=== PATIENT | female | born 1955 | race Caucasian/White ===

== ENCOUNTER 2016-07-11 06:07 | Day surgery (SDC) | payer BC, OTHER ==
[2016-07-11] MEDS ORDERED: methylPREDNISolone ACETATE 80 MG/ML VIAL ONE (12:08)
[2016-07-11] MEDS ORDERED: SODIUM BICARBONATE VIAL 50 MEQ/50 ML VIAL ONE (12:08)
[2016-07-11] MEDS ORDERED: LIDOCAINE 1% 10 ML VIAL INJ ONE (12:08)
[2016-07-11] MEDS ORDERED: BUPIVACAINE 0.25% INJ 30 ML VIAL INJ ONE (12:08)
[2016-07-11] MEDS ORDERED: SODIUM CHLORIDE 0.9% 10 ML VIAL ONE (13:22)
[2016-07-11 14:12] VITALS: TEMP 97.3; O2SAT 100
[2016-07-11 14:33] VITALS: BP 154/74
== END 2016-07-11 14:25 | disposition home or self-care (01) ==
LOC: AMB 06:07
PROVIDERS: ATTEND Anesthesiology Pain Medicine
DX: M51.16 Intervertebral disc disorders with radiculopathy, lumbar region (principal); Z79.82 Long term (current) use of aspirin; Z79.899 Other long term (current) drug therapy
CPT/HCPCS: 64490; 76000; J1030

== ENCOUNTER 2016-08-15 06:00 | Day surgery (SDC) | payer OTHER ==
[2016-08-15] MEDS ORDERED: methylPREDNISolone ACETATE 80 MG/ML VIAL ONE (11:52)
[2016-08-15] MEDS ORDERED: LIDOCAINE 1% 10 ML VIAL INJ ONE (11:52)
[2016-08-15] MEDS ORDERED: SODIUM CHLORIDE 0.9% 10 ML VIAL ONE (11:52)
[2016-08-15] MEDS ORDERED: SODIUM BICARBONATE VIAL 50 MEQ/50 ML VIAL IV ONE (14:15)
[2016-08-15] MEDS ORDERED: LIDOCAINE 1% MPF 5 ML VIAL INJ ONE ×2 (14:15→14:21)
[2016-08-15 14:36] VITALS: BP 140/80; TEMP 97.6; O2SAT 99
== END 2016-08-15 14:42 | disposition home or self-care (01) ==
LOC: AMB 06:00
PROVIDERS: ATTEND Anesthesiology Pain Medicine
DX: M47.812 Spondylosis without myelopathy or radiculopathy, cervical region (principal); K21.9 Gastro-esophageal reflux disease without esophagitis; M81.0 Age-related osteoporosis without current pathological fracture; M54.17 Radiculopathy, lumbosacral region; G62.9 Polyneuropathy, unspecified; Z79.899 Other long term (current) drug therapy; Z87.891 Personal history of nicotine dependence
CPT/HCPCS: 64490; 64491; 64492; J1030

== ENCOUNTER → 2016-10-04 | Outpatient (CLI) | payer OTHER | END | disposition home or self-care (01) | LOC: YCFC.O 15:10 | PROVIDERS: ATTEND Nurse Practitioner Family | DX: Z79.891 Long term (current) use of opiate analgesic (principal) ==

== ENCOUNTER → 2016-10-19 | Outpatient (CLI) | payer OTHER | END | disposition home or self-care (01) | LOC: GMA 17:25 | PROVIDERS: ATTEND Nurse Practitioner Acute Care | DX: D51.3 Other dietary vitamin B12 deficiency anemia (principal) ==

== ENCOUNTER → 2016-11-21 | Outpatient (CLI) | payer OTHER | END | disposition home or self-care (01) | LOC: GMAM 14:23 | PROVIDERS: ATTEND Family Medicine | DX: D64.9 Anemia, unspecified (principal) ==

== ENCOUNTER → 2016-12-05 | Outpatient (CLI) | payer OTHER | END | disposition home or self-care (01) | LOC: GMAM 17:27 | PROVIDERS: ATTEND Family Medicine | DX: M25.50 Pain in unspecified joint (principal) ==

== ENCOUNTER → 2016-12-12 | Outpatient (CLI) | payer OTHER ==
--- NOTE | 2016-12-13 08:39 | MRI ---
EXAM DESCRIPTION: Brain w/wo Contrast CLINICAL HISTORY: 61 years Female, DIZZINESS COMPARISON: September 17, 2015 TECHNIQUE: MRI of the brain is performed according to our usual protocol including multiplanar multi sequence technique. Post gadolinium imaging is performed following IV administration of gadolinium contrast FINDINGS: Mild age-appropriate atrophic changes with ventriculomegaly is present with very little enlargement of the cortical sulci are sylvian fissures. No significant white matter disease or age-related changes are noted and diffusion imaging shows no evidence of acute or subacute restricted diffusion or ischemia. Postcontrast imaging demonstrates the normal meningeal and vascular structures. No enhancing tumor masses or metastatic disease or vascular malformations are noted. Extensive instrumentation of the cervical spine at the C3-4 level with suspected at least mild narrowing of the central spinal canal beginning at the at the upper C3 level is evident. If the patient remains with dizziness or has symptoms of a upper spinal tract disease, consider MRI of the cervical spine for evaluation for any element of stenosis. No significant inflammatory changes in the visualized paranasal sinuses and petrous ridges is seen. IMPRESSION: 1. Very slight prominence of the ventricular system, entirely consistent with the patient's age with no significant white matter disease or abnormal areas of enhancement. 2. Prior surgery in the upper cervical spine with what appears to be at least modest narrowing of the cervical spinal canal at the C3-4 level. 3. If symptoms of dizziness of persist or there is evidence of upper spinal tract disease consider MRI of the cervical spine to evaluate for possible stenosis. Electronically signed by: Benjamin Galvan MD 12/13/2016 8:39 AM CDT
== END | disposition home or self-care (01) ==
LOC: MRI 08:01
PROVIDERS: ATTEND Family Medicine
DX: H81.10 Benign paroxysmal vertigo, unspecified ear (principal)

== ENCOUNTER 2016-12-29 08:58 | Observation (INO) | payer OTHER ==
--- NOTE | 2016-12-29 09:16 | ED.PDOC ---
History of Present Illness - General Chief Complaint: Syncope/Near Syncope Stated Complaint: syncope Time Seen by Provider: 12/29/16 09:15 Source: patient Exam Limitations: no limitations - History of Present Illness Initial Comments: Donn Munguia 61 y/o female stated that while having bowel movement felt light headed,dizzy and almost passed out then on standing up fell on her arm.Had chronic diarrhea for the last 2 months.Initially had constipation in the past. Timing/Prior Episodes: single episode today Precipitating Factors: lightheadedness Context: sitting Episode Description: having bowel movement Loss of Consciousness: no loss of consciousness Current Symptoms: back to normal Allergies/Adverse Reactions: Allergies NO KNOWN ALLERGY Allergy (Verified 06/06/16 13:31) Home Medications: Ambulatory Orders ALPRAZolam [Xanax] 0.5 mg PO QID 06/06/16 Amitriptyline HCl [Elavil] 10 mg PO DAILY 06/06/16 Aspirin [Aspirin Adult Low Dose] 81 mg PO DAILY 06/06/16 Calcium Polycarbophil Tabs [Fiber Con Tabs] 625 mg PO PRN 06/06/16 Calcium W/ Vitamins D & K [Calcium + D + K] 1 tab PO DAILY 06/06/16 Celecoxib [CeleBREX] 200 mg PO DAILY 06/06/16 Cholecalciferol [Vitamin D3] 5,000 unit PO DAILY 06/06/16 Dexlansoprazole [Dexilant] 60 mg PO DAILY 06/06/16 Donepezil HCl [Aricept] 5 mg PO DAILY 06/06/16 Duloxetine HCl [Cymbalta] 60 mg PO DAILY 06/06/16 Gabapentin 300 mg PO DAILY 06/06/16 Gabapentin 400 mg PO BEDTIME 06/06/16 Lamotrigine [Lamictal] 150 mg PO BID 06/06/16 Linaclotide [Linzess] 145 mcg PO DAILY 06/06/16 Lisinopril 10 mg PO BID 06/06/16 Methylcellulose (Laxative) [Citrucel] 1 tbls PO DAILY 06/06/16 Polyethylene Glycol 3350 [Miralax] 1 pow PO PRN 06/06/16 Saccharomyces Boulardii [Probiotic] 250 mg PO DAILY 06/06/16 Sucralfate Tab [Carafate Tab] 1 gm PO BID 06/06/16 Trazodone HCl 50 mg PO DAILY 06/06/16 Review of Systems - Review of Systems Constitutional: States: weakness EENTM: States: no symptoms reported Respiratory: States: no symptoms reported Cardiology: States: no symptoms reported Gastrointestinal/Abdominal: States: see HPI Musculoskeletal: States: no symptoms reported Skin: States: no symptoms reported Neurological: States: no symptoms reported Endocrine: States: no symptoms reported Hematologic/Lymphatic: States: no symptoms reported Past Medical History (General) - Patient Medical History Hx Hypertension: Yes Hx Other PMH: Yes - 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 Surgical History: other - hysterctomy,neck,elbow - Social History Hx Alcohol Use: No Hx Substance Use: No Hx Substance Use Treatment: No Hx Depression: No Feels Threatened In Home Enviroment: No Feels Threatened In a Relationship: No Hx Physical Abuse: No Hx Emotional Abuse: No Hx Suspected Abuse: No - Activities of Daily Living Patient Lives Alone: No - Physical Exam - Physical Exam General Appearance: Alert, Anxious, No apparent distress, Other - speech fluent Eyes, Ears, Nose, Throat Exam: PERRL/EOMI, normal ENT inspection, TMs normal, pharynx normal Neck: non-tender, full range of motion, supple, normal inspection Cardiovascular/Respiratory: regular rate, rhythm, no M/R/G, normal peripheral pulses, no JVD, normal breath sounds, no respiratory distress Gastrointestinal/Abdominal: normal bowel sounds, non tender, soft, no organomegaly, no pulsatile mass Back Exam: normal inspection, no CVA tenderness, no vertebral tenderness Extremity: normal range of motion, non-tender, normal inspection, no pedal edema , no calf tenderness Mental Status: alert, 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 Exam: normal hearing, normal speech, PERRL Coordination/Gait: normal finger to nose Motor/Sensory: no motor deficit, no sensory deficit, no pronator drift, negative Babinski's sign Skin Exam: normal color, warm/dry Lymphatic: no adenopathy Progress - Progress Progress: 12/29/16 12:02 Vital Signs - 8 hr 12/29/16 12/29/16 09:04 10:00 Temperature 96.3 F L Pulse Rate [ 59 L 64 APICAL] Respiratory 19 18 Rate Blood Pressure 78/46 107/65 [RIGHT BRACHIAL ] O2 Sat by Pulse 99 98 Oximetry - Results/Orders Results/Orders: 12/29/16 09:16 URINE DRUG SCREEN, 7 ASSAY Stat URINALYSIS Stat 12/29/16 09:30 EKG STAT 12/29/16 10:59 Ankle,Left 2 Views [RAD] Stat 12/29/16 11:59 STOOL CULTURE Stat Laboratory Results - last 24 hr 12/29/16 12/29/16 12/29/16 09:25 09:25 09:25 WBC 15.0 H RBC 4.36 Hgb 11.3 L Hct 35.3 L MCV 81.0 MCH 25.9 L MCHC 31.9 L RDW 14.0 Plt Count 230 MPV 9.9 Absolute Neuts (auto) 12.70 H Absolute Lymphs (auto) 1.70 Absolute Monos (auto) 0.40 Absolute Eos (auto) 0.20 Absolute Basos (auto) 0.10 Neutrophils % 84.6 H Lymphocytes % 11.0 L Monocytes % 2.7 Eosinophils % 1.0 Basophils % 0.7 D-Dimer, Quantitative < 230 Sodium 137 Potassium 3.5 L Chloride 103 Carbon Dioxide 22 Anion Gap 15.5 BUN 17 Creatinine 0.99 BUN/Creatinine Ratio 17.2 Random Glucose 139 H Serum Osmolality 277.6 Lactic Acid Calcium 9.1 Total Bilirubin 0.3 AST 23 ALT 15 Alkaline Phosphatase 76 Creatine Kinase 75 CK-MB (CK-2) 3.4 CK-MB (CK-2) % Not Reportable Troponin I < 0.02 Serum Total Protein 6.5 Albumin 4.0 Globulin 2.5 Albumin/Globulin Ratio 1.6 Stool Occult Blood 12/29/16 12/29/16 09:50 09:55 WBC RBC Hgb Hct MCV MCH MCHC RDW Plt Count MPV Absolute Neuts (auto) Absolute Lymphs (auto) Absolute Monos (auto) Absolute Eos (auto) Absolute Basos (auto) Neutrophils % Lymphocytes % Monocytes % Eosinophils % Basophils % D-Dimer, Quantitative Sodium Potassium Chloride Carbon Dioxide Anion Gap BUN Creatinine BUN/Creatinine Ratio Random Glucose Serum Osmolality Lactic Acid 2.2 Calcium Total Bilirubin AST ALT Alkaline Phosphatase Creatine Kinase CK-MB (CK-2) CK-MB (CK-2) % Troponin I Serum Total Protein Albumin Globulin Albumin/Globulin Ratio Stool Occult Blood Negative - EKG/XRAY/CT EKG: Sinus, no ST T wave changes Comments: heart rate-64 XRAY: ankle - no acute abnormalities/radiologist Departure - Departure Clinical Impression: Diarrhea Syncope Qualifiers: Syncope type: unspecified Qualified Code(s): R55 - Syncope and collapse Time of Disposition: 12:40 - D/W Dr. Mike-hospitalist for admit Disposition: Admit Patient Condition: Fair Referrals: Benjamin New MD [Primary Care Provider] - 1-2 Weeks Home Medications: Ambulatory Orders ALPRAZolam [Xanax] 0.5 mg PO QID 06/06/16 Amitriptyline HCl [Elavil] 10 mg PO DAILY 06/06/16 Aspirin [Aspirin Adult Low Dose] 81 mg PO DAILY 06/06/16 Calcium Polycarbophil Tabs [Fiber Con Tabs] 625 mg PO PRN 06/06/16 Calcium W/ Vitamins D & K [Calcium + D + K] 1 tab PO DAILY 06/06/16 Celecoxib [CeleBREX] 200 mg PO DAILY 06/06/16 Cholecalciferol [Vitamin D3] 5,000 unit PO DAILY 06/06/16 Dexlansoprazole [Dexilant] 60 mg PO DAILY 06/06/16 Donepezil HCl [Aricept] 5 mg PO DAILY 06/06/16 Duloxetine HCl [Cymbalta] 60 mg PO DAILY 06/06/16 Gabapentin 300 mg PO DAILY 06/06/16 Gabapentin 400 mg PO BEDTIME 06/06/16 Lamotrigine [Lamictal] 150 mg PO BID 06/06/16 Linaclotide [Linzess] 145 mcg PO DAILY 06/06/16 Lisinopril 10 mg PO BID 06/06/16 Methylcellulose (Laxative) [Citrucel] 1 tbls PO DAILY 06/06/16 Polyethylene Glycol 3350 [Miralax] 1 pow PO PRN 06/06/16 Saccharomyces Boulardii [Probiotic] 250 mg PO DAILY 06/06/16 Sucralfate Tab [Carafate Tab] 1 gm PO BID 06/06/16 Trazodone HCl 50 mg PO DAILY 06/06/16
[2016-12-29] MEDS ORDERED: LACTATED RINGERS 1,000 ML IVS ONE (09:18)
--- NOTE | 2016-12-29 09:45 | RAD ---
EXAM DESCRIPTION: Chest,1 View CLINICAL HISTORY: passed out COMPARISON: None available TECHNIQUE: AP portable chest FINDINGS: The lungs are clear. There is no infiltrate or effusion. The heart is normal size. IMPRESSION: Normal portable chest Electronically signed by: Jarvis Pedraza MD 12/29/2016 9:44 AM CDT
[2016-12-29] MEDS ORDERED: KETOROLAC TROMETHAMINE INJ 30 MG/ML VIAL IV ONE (11:00)
--- NOTE | 2016-12-29 11:18 | RAD ---
EXAM DESCRIPTION: Hip,Left 2 Views CLINICAL HISTORY: pain COMPARISON: None Available. TECHNIQUE: AP/frog leg lateral FINDINGS: There is no bone, joint, or soft tissue abnormality. IMPRESSION: Normal study Electronically signed by: Jarvis Pedraza MD 12/29/2016 11:17 AM CDT
--- NOTE | 2016-12-29 12:28 | RAD ---
EXAM DESCRIPTION: Ankle,Left 2 Views CLINICAL HISTORY: pain COMPARISON: None. IMPRESSION: 2 views of the left ankle show diffuse osteopenia of the osseous structures without acute fracture, focal bone destruction, or joint dislocation. No advanced arthrosis is seen. Partly visualized postsurgical changes to the right first metatarsal are noted. Electronically signed by: Gabe Pedro MD 12/29/2016 12:27 PM CDT
--- NOTE | 2016-12-29 14:03 | HP ---
HISTORY OF PRESENT ILLNESS: This 61 year-old white female is placed in the hospital for observation from the Emergency Room because of a complete loss of consciousness with syncopal episode having occurred in the bathroom during an explosive watery diarrhea episode. She apparently found herself on the ground having fallen sort of straight down in a small bathroom catching her especially left ankle and hip underneath her with subsequent pain. She was helped up eventually and taken to the Emergency Room for initial evaluation. She has had chronic GI followup with Dr. Centeno, [facility], and has been on a year or more of Linzess. She has had irritable bowel syndrome with migratory aching and cramping sensations in her abdomen. She is even scheduled for a repeat colonoscopy in the next few weeks. In the Emergency Room, she was found to have a very low blood pressure documented down to 78/46 and was given some IV supplementation. She had stool tests, including Clostridium Difficile test which was negative as well as a stool hemoccult which was negative. It was of note that 2 weeks ago she was seen by Dr. New in [facility] and her Linzess was increased to 2 of the 145 mg tablets per day. Subsequently she has had some loose stools but they got especially worse as of today just prior to her syncopal episode. She is placed in the hospital for stabilization, additional IV fluid as well as vital signs and neurologic signs, and telemetry to more fully rule out an underlying cardiac rhythm contributing to her syncope. She has had chronic pain as well in her neck after having had surgery in the past and paresthesias in both upper extremities possibly related to cervical radiculopathies. PAST MEDICAL HISTORY: 1. Irritable bowel syndrome. 2. Megacolon. 3. Hypertension. PAST SURGICAL HISTORY: 1. Hysterectomy. 2. Bunion surgery. 3. Hammertoe. 4. Cervical fusion. She has been followed by Dr. Mckeon, neurologist in [place], for these paresthesias and is scheduled for an EMG test to more fully delineate their etiology later in the month of December. CURRENT MEDICATIONS: Please refer to medicines list for a complete verified list of home medications. ALLERGIES: NONE KNOWN. FAMILY HISTORY: Positive for emphysema and strokes. 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 She stopped smoking about 7 years ago. REVIEW OF SYSTEMS: She has had some weight gain in recent years. No significant fever or chills. HEENT: No hearing or vision problems. PULMONARY: Increased pulmonary secretions with dark colored sputum produced, especially in the morning. CARDIOVASCULAR: No significant chest pains or palpitations noted. GASTROINTESTINAL: No nausea and vomiting, but she does have this watery diarrhea recently getting worse today. No blood in the stools noted. GENITOURINARY: No dysuria. NEUROLOGIC: The patient had an episode of complete unconsciousness having landed on the floor injuring her left ankle and hip area with no fractures noted on preliminary x-rays. Low blood pressure was noted to be associated with her initial visit into the Emergency Room today. PHYSICAL EXAMINATION: VITAL SIGNS: Afebrile, initial pulse 59 up to 72, blood pressure 78/46 up to 130/78 after fluids. Pulse oximetry 99% on room air. Weight 70.6 kilos. GENERAL: The patient is awake, alert and oriented. She is feeling better after the first liter of IV fluids had been administered. Still though quite weak when getting up. Tilt blood pressure showed blood pressure going up when she stood after 1.5 liters of fluid resuscitation, but the pulse also increased upon standing. CHEST: Lungs generally clear to auscultation. CARDIOVASCULAR: Heart tones regular. No significant murmurs. ABDOMEN: Mildly tender in the epigastric area with slightly hyperactive bowel tones. No organomegaly evident upon gentle palpation. EXTREMITIES: Well formed. No significant edema. NEUROLOGIC: Awake, alert and oriented and communicative. No focal weaknesses noted. She has had episodes of paresthesias in both upper extremities but not present currently. LABORATORY: White count 15,000 with 85% neutrophils, hemoglobin 11.3. D-dimer is under 230. Chemistry shows potassium 3.5 with supplement started, BUN 17, creatinine 0.99, glucose 139, lactic acid 2.2. Liver enzymes normal. Troponin zero. Albumin 4. Urinalysis showed some trace hematuria, otherwise clear. Stool occult blood negative. Urine drug screen positive for Benzodiazepines. Clostridium Difficile negative. X-rays of the hip and left ankle, and chest x-ray were unremarkable. ASSESSMENT: 1. Severe worsening liquid diarrhea. Observe for possible underlying colitis with repeat colonoscopy scheduled, but also consider side effect directly related to Linzess medications recently increased dose. 2. Acute syncopal episode, rule out underlying cardiac arrhythmia versus vasovagal response. 3. Dehydration state requiring supplementation. 4. History of irritable bowel syndrome. 5. Leukocytosis. 6. Hypokalemia with supplementation initiated. 7. History of dystaxia. 8. History of falls. 9. History of upper extremity paresthesias probably related to cervical radiculopathy as a potential sequelae and residual symptom after cervical fusion surgery. PLAN: The patient is placed in the hospital for fluid and potassium supplementation. Pain control to be continued. Diet to be slowly advanced. Await C reactive protein in the morning. Stop all Linzess and reevaluate. Await stool culture. Observe telemetry. Observe closely and repeat with followup with Dr. New when clinically stable. #[id number] [facility]
[2016-12-29] MEDS ORDERED: ALUM & MAG HYDROX-SIMETHICONE 30 ML UD PO PRN (16:30)
[2016-12-29] MEDS ORDERED: IV SET AND CAP CHANGE INJ INJ SCH (16:30)
[2016-12-29] MEDS ORDERED: SODIUM CHLORIDE 0.9% (FLUSH) 10 ML SYG IV PRN (16:30)
[2016-12-29] MEDS: LEVALBUTEROL NEBS 1.25 MG/3 ML VIAL INH SCH ×2 (16:40→23:14)
[2016-12-29] MEDS: KCL 20 MEQ/NS 1,000 ML IVS PRN (17:24)
[2016-12-29] MEDS: ALPRAZolam 0.5 MG TAB PO PRN (17:24)
[2016-12-29] MEDS: HYDROcodone 5MG/APAP 325MG 1 EA TAB PO PRN ×2 (17:24→22:33)
[2016-12-29] MEDS ORDERED: LISINOPRIL 10 MG TAB ONE (19:23)
[2016-12-29] MEDS ORDERED: lamoTRIgine 100 MG TAB ONE (19:24)
[2016-12-29] MEDS ORDERED: PREGABALIN 100 MG CAP ONE (19:31)
[2016-12-29] MEDS: LISINOPRIL 10 MG TAB PO SCH (20:45)
[2016-12-29] MEDS: PREGABALIN 100 MG CAP PO SCH (20:45)
[2016-12-29] MEDS ORDERED: lamoTRIgine 100 MG TAB PO SCH (21:00)
[2016-12-30] MEDS: KCL 20 MEQ/NS 1,000 ML IVS PRN (02:23)
[2016-12-30] MEDS ORDERED: OMEPRAZOLE CAP 20 MG CAP ONE (05:27)
[2016-12-30] MEDS ORDERED: OMEPRAZOLE CAP 20 MG CAP PO SCH (06:30)
[2016-12-30] MEDS ORDERED: CELECOXIB 100 MG CAP ONE (07:48)
[2016-12-30] MEDS: LEVALBUTEROL NEBS 1.25 MG/3 ML VIAL INH SCH (08:24)
[2016-12-30] MEDS: HYDROcodone 5MG/APAP 325MG 1 EA TAB PO PRN (08:31)
[2016-12-30] MEDS: LISINOPRIL 10 MG TAB PO SCH (08:32)
[2016-12-30] MEDS: PREGABALIN 100 MG CAP PO SCH (08:32)
[2016-12-30] MEDS ORDERED: CELECOXIB 100 MG CAP PO SCH (09:00)
[2016-12-30] MEDS: ALPRAZolam 0.5 MG TAB PO PRN (09:12)
[2016-12-30 09:57] VITALS: BP 108/65; TEMP 96.8; O2SAT 100
[2016-12-30] MEDS ORDERED: PNEUMOCOCCAL VACCINE 0.5 ML INJ IM ONE (10:22)
--- NOTE | 2016-12-30 11:37 | DS ---
DISCHARGE DIAGNOSIS: 1. Severe diarrhea, resulting in dehydration and hypovolemia and shock state with associated syncope, possible related to side effects of Linzess medications recently on an increased dose, now stopped. 2. Acute syncopal episode with loss of consciousness with no evidence of underlying cardiac rhythm contributing to it, probably secondary to vasovagal response with postural hypotension document with low systolic in the Emergency Room on admission. 3. Dehydration state, secondary to diarrhea, requiring fluid supplementation. 4. History of irritable bowel syndrome and megacolon. 5. Leukocytosis, improved. 6. Hypokalemia with supplementation initiated. 7. History of dystaxia. 8. History of falls. 9. History of upper extremity paresthesias, probably secondary to a recent cervical radiculopathy associated with a cervical fusion procedure. HISTORY OF PRESENT ILLNESS: This 61-year-old, white female was placed in the hospital from the Emergency Room because of a complete loss of consciousness which occurred while going to the bathroom at home. She had an explosive watery diarrhea episode, getting worse over the last week to ten days. It is of note that she did have her Linzess dose increased about two weeks before and has been on it for a few years because of an irritable bowel presentation. She is followed closely by Dr. New in family clinic and Dr. Centeno in the GI clinic. The Linzess was stopped and she was placed in the hospital for IV hydration to continue and for close observation of the diarrhea as well as telemetry to see if there is another etiology contributing to the syncopal episode noted at home. LABORATORY: White count 15,000 with 85% neutrophils, decreasing to 6,300 with 60% neutrophils. Hemoglobin stable at 10.2. D-Dimer under 230. Chemistries showed potassium 3.5, BUN 11, creatinine 0.74, glucose 98 on discharge. Lactic acid 2.2. C-reactive protein 3.7. Liver enzymes otherwise normal. Troponin 0. Albumin 4. Urinalysis showed some hematuria. Stool guaiac negative on one testing and urine drug screen was positive for benzodiazepines. C. difficile was negative. No stool specimen was obtained with the patient not having any further stool specimens since her admission. In her fall, she had pain in her left hip and ankle and x-ray showed no bony fractures and chest x-ray showed no acute process. HOSPITAL COURSE: The patient was feeling much improved at the time fo discharge and will have close followup with her physicians in the outpatient department. PLAN: The patient is discharged home to continue with her home medications, but to stop the Linzess. She will followup with Dr. New in a week and see Dr. Centeno at the GI clinic appointment already made. She also has an appointment later in December for an EMG at Dr. Mckeon's office in [facility]. She is stop the Linzess for now and observe for improvement of the diarrhea and allow the GI clinic and Dr. New to assist on starting it again in the future if indicated. Drink plenty of fluids. Return if not improving. #[id number] [facility]
== END 2016-12-30 11:00 | disposition home or self-care (01) ==
LOC: ER 08:58 → MS 14:02
PROVIDERS: ADMIT Emergency Medicine; ATTEND Emergency Medicine
DX: R55 Syncope and collapse (principal); I95.9 Hypotension, unspecified; E86.0 Dehydration; K58.0 Irritable bowel syndrome with diarrhea; D72.829 Elevated white blood cell count, unspecified; S79.912A Unspecified injury of left hip, initial encounter; S99.912A Unspecified injury of left ankle, initial encounter; E87.6 Hypokalemia; I10 Essential (primary) hypertension; G89.29 Other chronic pain; M54.2 Cervicalgia; R20.9 Unspecified disturbances of skin sensation; K59.39 Other megacolon; M87.872 Other osteonecrosis, left ankle; W18.12XA Fall from or off toilet with subsequent striking against object, initial encounter; Y92.012 Bathroom of single-family (private) house as the place of occurrence of the external cause; Z91.81 History of falling; Z23 Encounter for immunization; Z87.891 Personal history of nicotine dependence; Z79.82 Long term (current) use of aspirin; Z79.899 Other long term (current) drug therapy; Z98.1 Arthrodesis status; Z90.710 Acquired absence of both cervix and uterus; Z83.6 Family history of other diseases of the respiratory system; Z82.3 Family history of stroke
CPT/HCPCS: 36415 ×4; 71010; 73502; 73600; 80048; 80053; 80307; 81001; 82270; 82550; 82553; 83605; 84484; 85025 ×2; 85379; 86140; 87045; 87046; 87324; 87449; 93005; 94640 ×3; 94760; 96361; 96374; 96375; 96376; 99284; G0009; G0378; J1885; J3480 ×2; J7120; J7614 ×3

== ENCOUNTER → 2017-01-06 | Outpatient (CLI) | payer OTHER ==
--- NOTE | 2017-01-06 19:22 | MRI ---
EXAM DESCRIPTION: Cervical Spine CLINICAL HISTORY: CERVICAL SPINE STENOSIS COMPARISON: None Available. TECHNIQUE: Multiplanar images of the cervical spine were submitted without the administration of contrast COMPARISON: 05/05/2015. The previous report is not available at the time of dictation. FINDINGS: There is mild anterolisthesis of C5 on C6 and C7 on T1 which appears similar to the previous examination. Anterior plate and screw fixation at C3-C4. Marrow signal appears within normal limits without evidence of geographic marrow lesion or marrow edema. Mild Modic endplate changes are noted particularly anteriorly at C5-C6 and C7 with marginal osteophytosis. No acute fracture. Signal within the cervical cord appears within normal limits. Motion artifact limits the axial images. C2-3: There is hypertrophy of the ligamentum flavum at C2-3 which has increased as compared to the previous study. There appears to be moderate to severe narrowing of the central canal and mild neural foraminal narrowing.. C3-4: There is mild flattening of the anterior aspect of the thecal sac with mild central canal narrowing. This has improved as compared to the patient's previous study. C4-5: Mild central canal and neural foraminal narrowing. C5-6: There is bilateral facet arthropathy left greater than right with generalized bulging of the disc and anterolisthesis. This results in moderate narrowing of the central canal and neural foramina worse on the left. C6-7: Generalized bulging of disc with mild central canal and neural foraminal stenosis. C7-T1: Mild disc bulging with mild central canal and neural foraminal stenosis. IMPRESSION: Postsurgical change of anterior plate and screw fixation at C3-C4 with improved spinal stenosis. There is mild residual central canal and neural foraminal narrowing Progression of facet arthropathy and ligamenta flava hypertrophy at C2-C3 with moderate to severe central canal stenosis and bilateral neural foraminal narrowing. Additional degenerative changes as above Motion artifact limits the axial sequences Electronically signed by: Sonja Hernandez 01/06/2017 7:21 PM CDT
== END | disposition home or self-care (01) ==
LOC: MRI 10:58
PROVIDERS: ATTEND Family Medicine
DX: M48.02 Spinal stenosis, cervical region (principal)

== ENCOUNTER → 2017-01-09 | Outpatient (CLI) | payer OTHER ==
--- NOTE | 2017-01-10 10:19 | US ---
EXAM DESCRIPTION: Venous, lower Extremity LT CLINICAL HISTORY: EDEMA COMPARISON: None Available. TECHNIQUE: Two -dimensional and doppler sonographic evaluation of the deep venous system of the left lower extremity. FINDINGS: Doppler evaluation shows normal color flow and normal phasicity and augmentation of the left common femoral vein, deep femoral vein, femoral vein, popliteal vein, greater/lesser saphenous vein, peroneal, and posterior tibial vein. The left lower extremity deep veins showed normal occlusion with transducer pressure. Two-dimensional survey showed no echogenic thrombus within these veins. IMPRESSION: 1. Duplex ultrasound evaluation of the left lower extremity deep venous system showing no evidence of thrombosis or embolism. Electronically signed by: Nicho Freeman MD 01/10/2017 10:18 AM CDT Workstation: [id number]
== END | disposition home or self-care (01) ==
LOC: US 09:59
PROVIDERS: ATTEND Family Medicine
DX: R60.0 Localized edema (principal)

== ENCOUNTER → 2017-01-13 | Outpatient (CLI) | payer OTHER ==
--- NOTE | 2017-01-13 15:33 | MRI ---
MRI left foot without contrast INDICATION: Lateral foot pain and swelling x2 weeks status post fall TECHNIQUE: Noncontrast MR imaging left foot standard protocol FINDINGS: There is metal artifact related to arthrodesis at the first MTP joint which appears fused with mature osseous bridging. Minimal edema within and around the Lisfranc ligament complex without tonya rupture or widening of the interval. There is marrow edema throughout the second metatarsal and within the distal middle cuneiform. There is an oblique intra-articular fracture at the base of the second metatarsal and adjacent contusion or degenerative osteoarthrosis involving the middle cuneiform. No osteochondral lesion of the talus. No additional fracture identified. IMPRESSION: Oblique intra-articular grossly nondisplaced fracture of the base of the second metatarsal with diffuse adjacent soft tissue edema and marrow edema Edema distal middle cuneiform related to degenerative change or contusion/occult fracture First MTP joint arthrodesis without evident complication No tonya rupture of the Lisfranc ligament complex with mild adjacent edema suggesting mild sprain Electronically signed by: Marcelino Morse MD 01/13/2017 3:31 PM CDT
== END ==
LOC: MRI 07:49
PROVIDERS: ATTEND Family Medicine
DX: S92.325A Nondisplaced fracture of second metatarsal bone, left foot, initial encounter for closed fracture (principal)

== ENCOUNTER → 2017-01-27 | Outpatient (CLI) | payer OTHER ==
--- NOTE | 2017-01-30 08:58 | RAD ---
EXAM DESCRIPTION: Foot,Left 3 Views CLINICAL HISTORY: 61 years, Female, LEFT FOOT PAIN. M79.672 COMPARISON: None. FINDINGS: Plate and six screws transfix the distal 1st metatarsal without findings of hardware failure. Fracture appears to be healed. Slight valgus angulation present likely chronic. There is a 8 mm avulsion fracture at medial base of the 2nd metatarsal. IMPRESSION: 1. Fracture distal 1st metatarsal appears reduced and presumably healed with slight residual valgus angulation 2. A avulsion fracture proximal 2nd metatarsal medially at the Lisfranc joint. Further follow-up should be obtained for evaluating this fracture to avoid potential midfoot instability Electronically signed by: Herman Rider MD 01/30/2017 8:56 AM CDT
== END | disposition home or self-care (01) ==
LOC: RAD 07:50
PROVIDERS: ATTEND Orthopaedic Surgery
DX: M79.672 Pain in left foot (principal)

== ENCOUNTER → 2017-02-08 | Outpatient (CLI) | payer OTHER ==
--- NOTE | 2017-02-09 12:12 | RAD ---
Study: 3 Views of the Left Foot. Indication: CLOSED FX OF METATARSAL Comparison: January 27, 2017. IMPRESSION: Healed distal fracture first metatarsal with dorsal fusion across the first MTP joint. Oblique fracture medial margin base of the second metatarsal demonstrates stable alignment. No progressive fusion. Early nonunion may be present. No new fracture. Electronically signed by: Deshawn Gongora MD 02/09/2017 12:10 PM CDT
== END | disposition home or self-care (01) ==
LOC: RAD 13:15
PROVIDERS: ATTEND Orthopaedic Surgery
DX: S92.302D Fracture of unspecified metatarsal bone(s), left foot, subsequent encounter for fracture with routine healing (principal)

== ENCOUNTER → 2017-02-14 | Outpatient (CLI) | payer OTHER | LOC: YCFC.O 13:24 | PROVIDERS: ATTEND Anesthesiology Pain Medicine | DX: Z79.891 Long term (current) use of opiate analgesic (principal) ==

== ENCOUNTER → 2017-02-28 | Outpatient (CLI) | payer OTHER ==
--- NOTE | 2017-02-28 10:04 | RAD ---
EXAM DESCRIPTION: Foot,Left 3 Views CLINICAL HISTORY: CLOSED FRACTURE OF METATARSAL BONE COMPARISON: None January 2017 TECHNIQUE: 3 views left. FINDINGS: The exam reveals a metatarsal phalangeal arthrodesis of the first digit of left foot. A fracture of the proximal aspect of the second metatarsal is observed with extension into the metatarsal tarsal articulation. Mild degenerative changes are observed in the proximal interphalangeal joint of the second digit. No further fracturing is detected. IMPRESSION: 1. The metatarsal phalangeal arthrodesis of the first digit is observed. 2. An oblique fracture of the proximal base of the second metatarsal is observed unchanged the previous exam. Electronically signed by: Jarvis Pedraza MD 02/28/2017 10:02 AM CDT
== END | disposition home or self-care (01) ==
LOC: RAD 08:23
PROVIDERS: ATTEND Orthopaedic Surgery
DX: S92.324D Nondisplaced fracture of second metatarsal bone, right foot, subsequent encounter for fracture with routine healing (principal); X58.XXXA Exposure to other specified factors, initial encounter

== ENCOUNTER → 2017-03-24 | Outpatient (CLI) | payer OTHER ==
--- NOTE | 2017-03-27 08:13 | RAD ---
Study: 3 Views of the Left Foot. Indication: CLOSED FX OF METATARSAL BONE Comparison: February 28, 2017. IMPRESSION: Previous noted fracture at the medial margin the base of the second metatarsal is redemonstrated with stable alignment. There is slightly progressed healing, however the fracture remains incompletely united with subtle areas of sclerotic fracture margins which can indicate a component of nonunion. Arthrodesis of the first MTP joint redemonstrated. Casting material present. Electronically signed by: Deshawn Gongora MD 03/27/2017 8:12 AM CDT
== END | disposition home or self-care (01) ==
LOC: RAD 07:53
PROVIDERS: ATTEND Orthopaedic Surgery
DX: S92.325G Nondisplaced fracture of second metatarsal bone, left foot, subsequent encounter for fracture with delayed healing (principal)

== ENCOUNTER 2017-04-24 05:00 | Day surgery (SDC) | payer OTHER ==
[2017-04-24] MEDS ORDERED: LIDOCAINE 1% MPF 5 ML VIAL ONE (10:55)
[2017-04-24] MEDS ORDERED: SODIUM CHLORIDE 0.9% 10 ML VIAL ONE (10:55)
[2017-04-24] MEDS ORDERED: SODIUM BICARBONATE VIAL 50 MEQ/50 ML VIAL ONE (10:55)
[2017-04-24] MEDS ORDERED: methylPREDNISolone ACETATE 80 MG/ML VIAL ONE (10:55)
[2017-04-24] MEDS ORDERED: methylPREDNISolone ACETATE 80 MG/ML VIAL INJ ONE (13:00)
[2017-04-24] MEDS ORDERED: SODIUM CHLORIDE 0.9% 10 ML VIAL INJ ONE (13:00)
[2017-04-24] MEDS ORDERED: LIDOCAINE 1% 10 ML VIAL INJ ONE (13:00)
[2017-04-24] MEDS ORDERED: SODIUM BICARBONATE VIAL 50 MEQ/50 ML VIAL IV ONE (13:00)
[2017-04-24 13:25] VITALS: BP 96/64; TEMP 97.6; O2SAT 96
== END 2017-04-24 13:22 | disposition home or self-care (01) ==
LOC: AMB 05:00
PROVIDERS: ATTEND Anesthesiology Pain Medicine
DX: M47.22 Other spondylosis with radiculopathy, cervical region (principal); M54.2 Cervicalgia; D64.9 Anemia, unspecified; F41.8 Other specified anxiety disorders; M54.17 Radiculopathy, lumbosacral region; K21.9 Gastro-esophageal reflux disease without esophagitis; Z87.891 Personal history of nicotine dependence; Z79.82 Long term (current) use of aspirin; Z79.899 Other long term (current) drug therapy
CPT/HCPCS: 62321; 76000; J1030

== ENCOUNTER → 2017-04-24 | Outpatient (CLI) | payer OTHER ==
--- NOTE | 2017-04-24 10:09 | RAD ---
EXAM DESCRIPTION: Right 3 Views CLINICAL HISTORY: 61 years, Female, CLOSED FX OF METATARSAL BONE COMPARISON: March 24 FINDINGS: Three views of the left foot obtained. Cast removed for this study. Stable arthrodesis 1st metatarsal phalangeal joint. The diagonal fracture proximal medial base 2nd metatarsal shows stable alignment. Slightly sclerotic fracture margins present with residual distraction of up to about 1 mm. IMPRESSION: 1. Stable alignment of diagonal fracture proximal medial base 2nd metatarsal. Some sclerotic margins around the fracture indicating possible future nonunion. 2. Stable arthrodesis 1st metatarsophalangeal joint. Other bones and joints stable Electronically signed by: Herman Rider MD 04/24/2017 10:08 AM CDT
== END | disposition home or self-care (01) ==
LOC: RAD 07:55
PROVIDERS: ATTEND Orthopaedic Surgery
DX: S92.325G Nondisplaced fracture of second metatarsal bone, left foot, subsequent encounter for fracture with delayed healing (principal)

== ENCOUNTER → 2017-05-11 | Outpatient (CLI) | payer OTHER ==
--- NOTE | 2017-05-12 16:05 | RAD ---
EXAM DESCRIPTION: Barium Swallow CLINICAL HISTORY: EPIGASTRIC PAIN COMPARISON: None TECHNIQUE: Preliminary AP toaster element repairer radiograph. The patient swallowed barium pill with water. The patient swallowed gas-producing granules, water, and heavy density barium under fluoroscopic visualization. The images were obtained with the patient standing and horizontal. Patient drank medium density barium through a straw in the semi-prone position. 15 fluoroscopic cine loop images. 10 static fluoroscopic images. Total fluoroscopy time was 3 minutes, 0 seconds.. Dose 70.57 mGy.. FINDINGS: The patient swallowed barium pill in a timely fashion except for minimal delay at the gastroesophageal junction. The contrast travels through the oropharynx and hypopharynx in a somewhat asymmetric with minimal deviation to the right of midline. ACDF construct with anterior plate and screws in C3-4 in the upper plate is abutting the posterior hypopharynx at the level of the vallecula. There also appears to be mass effect on the posterior upper esophagus at the C6 level. No tonya laryngeal penetration. Small sliding hiatal hernia. Moderate gastroesophageal reflux. Minimal mucosal irregularities in the distal esophagus but no mass effect. Limited primary peristaltic wave in the distal esophagus with secondary contractions in the distal esophagus. No gross mucosal lesions in the stomach. No mass effect. No gastroduodenal obstruction IMPRESSION: 1. Questionable mass effect of ACDF construct at C3-4 on the posterior hypopharynx. Also mass effect at the C5-6 level but not interpreted to be related to the spine. Cannot exclude a mucosal lesion. No gastroesophageal reflux. 2. Moderate gastroesophageal reflux with minimal mucosal changes distal esophagus. Incomplete primary peristaltic wave with secondary contractions distal esophagus. No mass effect. Small sliding hiatal hernia. Electronically signed by: Nicho Freeman MD 05/12/2017 4:03 PM [facility]
== END | disposition home or self-care (01) ==
LOC: RAD 10:04
PROVIDERS: ATTEND Family Medicine
DX: K21.9 Gastro-esophageal reflux disease without esophagitis (principal); K59.01 Slow transit constipation

== ENCOUNTER → 2017-05-16 | Outpatient (CLI) | payer OTHER | END | disposition home or self-care (01) | LOC: YCFC.O 16:06 | PROVIDERS: ATTEND Anesthesiology Pain Medicine | DX: Z79.891 Long term (current) use of opiate analgesic (principal) ==

== ENCOUNTER 2017-06-12 05:41 | Day surgery (SDC) | payer OTHER ==
[2017-06-12] MEDS ORDERED: methylPREDNISolone ACETATE 80 MG/ML VIAL ONE (11:18)
[2017-06-12] MEDS ORDERED: SODIUM CHLORIDE 0.9% 10 ML VIAL ONE (11:18)
[2017-06-12] MEDS ORDERED: SODIUM BICARBONATE VIAL 50 MEQ/50 ML VIAL ONE (11:18)
[2017-06-12 12:09] VITALS: TEMP 97
[2017-06-12] MEDS: LIDOCAINE 1% MPF 5 ML VIAL ONE ×2 (12:42→12:44)
[2017-06-12 14:29] VITALS: BP 159/94; O2SAT 99
== END 2017-06-12 13:00 | disposition home or self-care (01) ==
LOC: AMB 05:41
PROVIDERS: ATTEND Anesthesiology Pain Medicine
DX: M47.22 Other spondylosis with radiculopathy, cervical region (principal); M50.10 Cervical disc disorder with radiculopathy, unspecified cervical region; M54.2 Cervicalgia; G62.9 Polyneuropathy, unspecified; D64.9 Anemia, unspecified; F41.8 Other specified anxiety disorders; Z87.891 Personal history of nicotine dependence; Z79.82 Long term (current) use of aspirin; Z79.899 Other long term (current) drug therapy
CPT/HCPCS: 62321; 76000; J1030

== ENCOUNTER → 2017-08-08 | Outpatient (CLI) | payer BC | LOC: GMAM 10:48 | PROVIDERS: ATTEND Family Medicine | DX: D64.9 Anemia, unspecified (principal) ==

== ENCOUNTER → 2017-10-10 | Outpatient (CLI) | payer BC ==
--- NOTE | 2017-10-10 15:55 | MRI ---
EXAM DESCRIPTION: Cervical Spine: MRI. CLINICAL HISTORY: MYOPATHY COMPARISON: MRI cervical spine 01/06/2017. TECHNIQUE: Multiplanar MRI, multiple sequences, non-contrast High-field. FINDINGS: C2-3: Prominent posterior ligaments impressing on the posterior cord. Desiccation of the disc with tiny posterior midline bulge. Right uncinate spur and minimal narrowing of the left neural foramen. Facets are negative. C3-4: ACDF with significant fusion of the disc space. Mild to moderate bilateral neural foraminal narrowing and canal narrowing. No cord compression. C4-5: Disc desiccation and disc space loss with no posterior bulge. Mild narrowing left neural foramen. Mild bilateral facet arthrosis. No significant canal narrowing. C5-6: Minimal disc desiccation and disc space loss. Anterior bulging with endplate ridging. Posterior 2 to 3 mm disc bulge abutting the cord. Mild to moderate narrowing right neural foramen. Posterior flavum ligament hypertrophy with moderate canal narrowing. Left facet arthrosis and uncinate spur. Severe left neural foraminal narrowing. C6-7: Anterior endplate spurs and disc bulging with disc desiccation and minimal disc space loss. Posterior disc bulge 3 mm abutting the cord. Right neuroforamen patent and moderate left neural foraminal narrowing. Bilateral mild facet arthrosis. C7-T1: Disc desiccation posterior disc bulge abutting the cord with moderate canal narrowing. Minimal anterior bulging. Borderline right neural foraminal stenosis. Left neural foraminal patent. Bilateral facet arthrosis. No cord compression or cord edema. Spine is dextroscoliotic upper segments and levoscoliotic lobar segments. Exaggerated lordosis at C2-3. Atlantoaxial joint is unremarkable. Base of the cerebellar tonsils is at the level of the foramen magnum. Paravertebral soft tissues negative.. Vertebral bodies are not compressed at any level. Normal marrow signal in the remaining vertebral bodies and the posterior elements. IMPRESSION: 1. ACDF C2-3 is unremarkable. No soft tissue mass or fluid collection around the fusion components. Disc spaces almost fused. No canal or neural foraminal stenosis. Stable since the prior study. 2. Mild bilateral facet arthrosis with disc desiccation at C4-5. Mild left neural foraminal narrowing. Stable since the prior study. 3. Posterior C5-6 disc bulge with severe left neural foraminal narrowing, possibly stenosis. Stable since the prior study. Correlate for left C6 radiculopathy. 4. Posterior C6-7 disc bulge. Moderate left neural foraminal narrowing. Mild facet arthrosis. Also borderline right neural foraminal stenosis at C7-T1 with disc desiccation and posterior disc bulge. Correlate for right C8 radiculopathy. Stable since the prior study. 5. Significant scoliosis and lordosis. Electronically signed by: Nicho Fereman MD 10/10/2017 3:54 PM CDT
--- NOTE | 2017-10-11 07:40 | RAD ---
EXAM DESCRIPTION: Cervical Spine,5 Views CLINICAL HISTORY: MYOPATHY COMPARISON: None. TECHNIQUE: AP and lateral images cervical spine. Lateral flexion-extension FINDINGS: Cervical type vertebra: 7. Disk spaces: ACDF construct C3-4. Interbody fusion appears almost solid. Very questionable loosening of the superior plate and superior screws from C3 with radiolucency around the superior screws and space noted between the plate and the anterior vertebral body, approximately 6 mm. In addition the superior plate is exhibiting mass effect on the hypopharynx. Other disc spaces: Narrowing from C4-5 to C7-T1. C2-3 disc space is maintained. Facet joints: Unilateral or bilateral arthrosis at multiple levels. Compression deformities: None. Bone Density: Minimally decreased. FE/ OBL: Minimal flexion at C2-3 and C5-6 and C6-7. ACDF hardware and alignment stable. Extension-stable alignment and hardware at fusion level. Extension at C2-3. Neutral position C5-C7. Alignment: Levoscoliosis C1-C3. Dextroscoliosis C3-C7. IMPRESSION: 1. ACDF construct C3-4. Interbody fusion almost solid. 6 mm anterior displacement of the anterior plate from the C3 vertebral body with loosening of the C3 screws. This does not change with flexion or extension, and the remaining hardware is interpreted to be stable. 2. Minimal flexion and extension above and below the fusion construct. Scoliosis as noted. Decreased bone density. No compression type vertebral body fractures. Multiple levels of spondylosis and facet arthrosis. Electronically signed by: Nicho Freeman MD 10/11/2017 7:38 AM CDT
--- NOTE | 2017-10-11 07:55 | RAD ---
EXAM DESCRIPTION: Scoliosis Series CLINICAL HISTORY: 62 years Female, SCOLIOSIS COMPARISON: Cervical spine radiographs and cervical spine MRI on the same visit. TECHNIQUE: AP thoracic and lumbar standing scoliosis. Degree measurements obtained by Mccarthy angle technique. FINDINGS: 12 thoracic type vertebra with 12 rib pairs. Normal bone density. Levoscoliosis T1-T12 41.1 degrees. 5 lumbar type vertebra. Questionable compression versus spondylosis on the left aspect of L2 and L3. Dextroscoliosis T12-L4 45.8 degrees. Levoscoliosis L4-inferior SI joints 24.9 degrees. IMPRESSION: Significant thoracic levoscoliosis and lumbar dextroscoliosis, lumbosacral levoscoliosis. No definite compression abnormalities but there is loss of vertebral body height at L2-L3 on the left. Electronically signed by: Nicho Freeman MD 10/11/2017 7:54 AM CDT
== END | disposition home or self-care (01) ==
LOC: MRI 08:07
DX: M41.34 Thoracogenic scoliosis, thoracic region (principal); G72.9 Myopathy, unspecified

== ENCOUNTER → 2017-12-20 | Outpatient (CLI) | payer BC | LOC: GMAM 10:42 → EDSTATUS 13:51 | PROVIDERS: ATTEND Family Medicine | DX: D64.9 Anemia, unspecified (principal) ==

== ENCOUNTER → 2018-09-27 | Outpatient (CLI) | payer BC | LOC: GMAM 11:51 | PROVIDERS: ATTEND Family Medicine | DX: D64.9 Anemia, unspecified (principal) ==

== ENCOUNTER → 2018-12-19 | Outpatient (CLI) | payer BC ==
--- NOTE | 2018-12-20 13:24 | US ---
EXAM DESCRIPTION: Extremity,Lower Junior Arteries: Ultrasound. CLINICAL HISTORY: PVD COMPARISON: None. TECHNIQUE: Doppler evaluation of the bilateral lower extremity arterial flow waveforms and velocities. FINDINGS: Arterial waveforms in the right lower extremity are mostly triphasic. Some biphasic.. Arterial waveforms in the left lower extremity are mostly triphasic. Monophasic versus biphasic in the left DPA with decreased velocity.. Comments: Decreasing velocities in the left lower leg versus the right lower leg. IMPRESSION: Most likely early atherosclerotic occlusive disease below the left knee. Electronically signed by: Nicho Freeman MD 12/20/2018 1:21 PM CDT
== END ==
LOC: US 09:47
PROVIDERS: ATTEND Family Medicine
DX: I73.9 Peripheral vascular disease, unspecified (principal)

== ENCOUNTER → 2018-12-23 | Outpatient (CLI) | payer BC | LOC: SL 18:53 | PROVIDERS: ATTEND Family Medicine | DX: G47.10 Hypersomnia, unspecified (principal); G47.00 Insomnia, unspecified; I10 Essential (primary) hypertension; R06.83 Snoring ==

== ENCOUNTER → 2019-04-24 | Outpatient (CLI) | payer BC | LOC: GMAM 12:29 | PROVIDERS: ATTEND Family Medicine | DX: R63.5 Abnormal weight gain (principal) ==

== ENCOUNTER → 2019-04-25 | Outpatient (CLI) | payer BC ==
--- NOTE | 2019-04-25 18:39 | US ---
EXAM DESCRIPTION: Abdomen,Complete: Ultrasound. CLINICAL HISTORY: ABD SWELLING COMPARISON: None Available. TECHNIQUE: Transabdominal scanning: grayscale and Doppler modes. FINDINGS: Gallbladder: No echogenic stones or sludge. Normal size. Wall thickness upper normal 3 mm. No fluid. Nontender with transducer pressure. Common bile duct: 3.7 mm normal caliber. Liver: Long axis right lobe 17.2 cm. Diffuse increased echogenicity. Physiologic blood flow and normal caliber of the ducts. No focal lesions. Smooth capsule with no ascites. Pancreas: Included segments with normal echogenicity. Duct not seen.. Abdominal aorta: 1.7 cm proximal aorta. Mid and distal aorta obscured by intestinal gas shadowing. IVC: visualized; normal caliber. Spleen normal echogenicity; long axis measurement is 7.6 cm. Right kidney: 8.3 cm long axis. Mid renal cortical thickness 7.5 mm with normal echogenicity. No echogenic stones or hydronephrosis. Left kidney: 8.0 cm long axis. Normal cortical thickness and echogenicity. No echogenic stones or hydronephrosis. IMPRESSION: 1. Gallbladder unremarkable with normal caliber of the common bile duct. Pancreas is negative. 2. Steatosis of the liver and mild enlargement. Physiologic blood flow and normal caliber of the ducts. Smooth capsule with no ascites. 3. Age-related changes in the spleen and bilateral kidneys. Only proximal abdominal aorta was visualized with normal caliber. Normal caliber of the proximal IVC. Electronically signed by: Nicho Freeman MD 04/25/2019 6:37 PM CDT
== END ==
LOC: US 08:58
PROVIDERS: ATTEND Family Medicine
DX: R14.0 Abdominal distension (gaseous) (principal); K76.0 Fatty (change of) liver, not elsewhere classified

== ENCOUNTER → 2019-05-02 | Outpatient (CLI) | payer BC | LOC: LAB.O 15:55 | PROVIDERS: ATTEND Nurse Practitioner Family | DX: R19.7 Diarrhea, unspecified (principal) ==

== ENCOUNTER → 2019-06-10 | Outpatient (CLI) | payer BC ==
--- NOTE | 2019-06-11 10:25 | MRI ---
EXAM DESCRIPTION: Cervical Spine w/wo Contrast: MRI. CLINICAL HISTORY: 63 years Female MYELOPATHY SPONDYLOGENIC CERVICAL COMPARISON: MRI scan cervical spine noncontrast 10 October 2017. TECHNIQUE: Multiplanar, high-field MRI, multiple sequences, before and after 1 mL per 5 kg IV gadolinium contrast FINDINGS: Extensive posterior fusion and decompression from C2 through C7 bilaterally, new since the prior study. Bilateral transpedicular screws with unilateral connecting rods. Small fluid collection superior to the right C2 screw and catarino but not enhancing. No abnormal fluid collection in the posterior soft tissues or spinal canal. No abnormal contrast enhancement. Bilateral C1-C2 neural foramina are patent with no abnormal enhancement. Small cyst in the odontoid process superiorly with no enhancement. C2-C3: Disc desiccation posterior disc space loss. Anterolisthesis 2 mm. Canal and foramina patent. Bilateral foramina are patent. Posterior fusion causing hypertrophy of the posterior ligament which is impressing on the posterior cord. No cord edema or abnormal enhancement. Bilateral neural foraminal narrowing but no stenosis. C3-C4: Essentially complete bony fusion. No abnormal edema at the fusion site. Minimal foraminal narrowing right more than left. No abnormal contrast enhancement. C4-C5: Partial bony fusion posterior. No canal or neural foraminal stenosis. No abnormal marrow edema. Minimal fluid posterior to the cord in the midline abutting the posterior membrane at the decompression site, but no abnormal contrast enhancement in the fluid, the membrane, or extensor muscles. C5-C6 anterior interspace effusion with superior and inferior screws. Granulation tissue in the posterior disc space. No canal or foraminal stenosis. No abnormal contrast enhancement. No fluid or enhancement in the posterior decompression site. C6-C7: Anterior interspace fusion superior and inferior screw. Partial bony fusion. Moderate narrowing left neural foramen with right neuroforamen and canal patent. Normal contrast enhancement. C7-T1: Grade 1 anterolisthesis 3 mm. Mild canal narrowing. Bilateral neural foramina are patent. Disc desiccation and disc space loss. Normal contrast enhancement. T1-T2: Disc desiccation anterior bulging and endplate ridging. Minimal posterior bulge with mild canal narrowing but no neural foraminal or canal stenosis. Minimal degenerative hypertrophy of the facet joints and ligaments more on the right. Spinal alignment reduced lordosis since the prior study. Spondylolisthesis as noted. No cord compression or cord edema, or abnormal cord enhancement. Atlantoaxial joint minimal hypertrophic arthrosis.. Base of the cerebellar tonsils is above the foramen magnum. Paravertebral soft tissues negative, no abnormal enhancement. Vertebral bodies are not compressed at any level. Otherwise normal marrow signal in the remaining vertebral bodies and the posterior elements. IMPRESSION: 1. Extensive posterior decompression and bilateral transpedicular fusion with unilateral connecting rods C2-C7. Minimal fluid between the membrane in the bony roof posteriorly C3-C5 with no abnormal enhancement and no mass effect on the cord. Normal signal and enhancement throughout the cord. 2. Anterior interspace fusion with screws at C5-C6 and C6-C7 with anatomic alignment. No marrow edema, no abnormal fluid, and normal contrast enhancement. 3. Minimal bony hypertrophy and posterior ligament thickening at C2-C3 impressing on the posterior cord but no compression. Almost complete interdisc space osseous fusion at C3-C4 and partial posterior interosseous disc space fusion at C4-C5. 4.Anterolisthesis at C7-T1 stable since the prior study. Minimal canal and neural foraminal narrowing but no stenosis. 5. Desiccation T1-T2 disc with minimal posterior bulging. Canal and neural foraminal narrowing but no stenosis. Electronically signed by: Nicho Freeman MD 06/11/2019 10:23 AM [facility]
== END ==
LOC: MRI 09:30
PROVIDERS: ATTEND Student in an Organized Health Care Education/Training Program
DX: M47.12 Other spondylosis with myelopathy, cervical region (principal); M48.02 Spinal stenosis, cervical region; M51.04 Intervertebral disc disorders with myelopathy, thoracic region; M43.13 Spondylolisthesis, cervicothoracic region; Z98.1 Arthrodesis status

== ENCOUNTER → 2019-10-23 | Outpatient (CLI) | payer MEDICARE, OTHER ==
--- NOTE | 2019-10-23 14:46 | MRI ---
EXAM DESCRIPTION: MRI right knee CLINICAL HISTORY: Right knee pain and swelling COMPARISON: None. TECHNIQUE: Multiplanar, multisequence MR images of the right knee FINDINGS: Lateral subluxation of the body of the lateral meniscus. Globular intrameniscal signal with fraying of the superior articular surface anterior horn/anterior body. Mild intrameniscal signal in the posterior horn abutting the inferior articular surface over a short segment. Severe lateral femorotibial chondrosis, full-thickness over the majority of the lateral tibia with mild scalloped remodeling and mild marrow edema. Joint line osteophytes. Grade 4 chondrosis over the majority of the weightbearing lateral femoral condyle with a broad region of marrow edema. Prominent joint line osteophyte. A small defect in the inferior articular surface of the posterior body medial meniscus with contiguous blunting of the free edge/radial free edge tear. Medial femorotibial grade 3 chondrosis along the tibia and grade 2 chondrosis along the femoral condyle. Joint line osteophytes Lateral patellar positioning relative to the trochlea by about 8 mm. Minimal lateral patellar tilt. TT TG interval 18 mm. Chronic grade 4 osteochondral lesion about 8 x 8 mm with subchondral cystic change and mild edema, upper lateral facet. Mild surface irregularity and thinning throughout the remainder of the patella. High-grade chondral thinning along the upper lateral trochlea. Mild chondral thinning and surface irregularity diffusely throughout the remainder of the trochlea ACL, PCL, MCL and fibular collateral ligaments are intact Biceps femoris, popliteus and iliotibial band tendons are normal. Patellar and quadriceps tendons and tendons of the posterior medial knee are intact Large joint effusion with degenerative synovitis IMPRESSION: Tear of the lateral meniscus. Subluxation of the meniscus with intrameniscal signal and fraying of the superior articular surface anteriorly and inferior articular surface posteriorly Lateral femorotibial osteoarthritis. Focal tear of the medial meniscus along the mid to posterior body involving the free edge and inferior articular surface. Patellofemoral chondrosis. Chronic osteochondral lesion of the lateral facet patella, 8 x 8 mm Electronically signed by: Benjamin Dia MD 10/23/2019 2:45 PM CDT
== END ==
LOC: MRI 10:59
PROVIDERS: ATTEND Family Medicine
DX: M23.331 Other meniscus derangements, other medial meniscus, right knee (principal); M17.11 Unilateral primary osteoarthritis, right knee; M22.2X1 Patellofemoral disorders, right knee

== ENCOUNTER → 2019-10-31 | Outpatient (CLI) | payer MEDICARE, OTHER ==
--- NOTE | 2019-10-31 09:52 | RAD ---
EXAM DESCRIPTION: Knee,Right 1 or 2 Views CLINICAL HISTORY: PAIN IN RIGHT KNEE COMPARISON: Magnetic resonance imaging of the right knee dated October 2019 TECHNIQUE: 2 views right FINDINGS: Marked loss of lateral joint space is observed. Lateral and medial osteophyte formation is observed. The exam reveals a prior fracture of the proximal shaft of the tibia. Callus formation is seen to bridge the fracture site. Patellofemoral joint arthritis is observed most pronounced in the lateral patellofemoral articulation. 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 Electronically signed by: Jarvis Pedraza MD 10/31/2019 9:50 AM CDT
--- NOTE | 2019-10-31 09:52 | RAD ---
EXAM DESCRIPTION: Pelvis CLINICAL HISTORY: PAIN IN RIGHT HIP COMPARISON: None. TECHNIQUE: AP pelvis FINDINGS: The pelvis is intact. Mild degenerative changes are observed in the right sacroiliac joint and in the lower lumbar spine. The hips are unremarkable. No fracturing is detected. Mild degenerative changes are seen in the pubic symphysis. IMPRESSION: Degenerative changes are observed in the lower lumbar spine and right sacroiliac joint. No fracture or hip abnormality is detected. Electronically signed by: Jarvis Pedraza MD 10/31/2019 9:51 AM CDT
== END ==
LOC: LAB.O 10:46
PROVIDERS: ATTEND Orthopaedic Surgery
DX: M06.9 Rheumatoid arthritis, unspecified (principal); M17.11 Unilateral primary osteoarthritis, right knee; M47.896 Other spondylosis, lumbar region; M47.898 Other spondylosis, sacral and sacrococcygeal region

== ENCOUNTER → 2019-11-11 | Outpatient (CLI) | payer MEDICARE, OTHER | LOC: GMAM 11:36 | PROVIDERS: ATTEND Family Medicine | DX: E53.8 Deficiency of other specified B group vitamins (principal); R63.5 Abnormal weight gain ==

== ENCOUNTER → 2020-01-06 | Outpatient (CLI) | payer MEDICARE, OTHER | LOC: LAB.O 09:12 | PROVIDERS: ATTEND Orthopaedic Surgery | DX: Z01.818 Encounter for other preprocedural examination (principal) ==

== ENCOUNTER → 2020-01-20 | Outpatient (CLI) | payer MEDICARE, OTHER ==
--- NOTE | 2020-01-20 11:36 | MRI ---
EXAM DESCRIPTION: Brain w/o Contrast CLINICAL HISTORY: OTHER SYMPTOMS AND SIGNS INVOLVING THE MUSCULOSKELETAL SYSTEM. Weakness. Concern for multiple sclerosis. COMPARISON: None available TECHNIQUE: Non contrast MRI of the brain is performed according to our usual protocol including multiplanar multi sequence technique. FINDINGS: No hemorrhage, mass effect, restricted diffusion, or acute infarction is present. There is normal configuration of the ventricles and sulci. Mild generalized cerebral volume loss. Otherwise unremarkable appearance of the brain parenchyma and ventricles for the patient's age. No abnormal extra-axial fluid collections are present. Normal flow voids are present. The calvarium is intact. Visualized paranasal sinuses and mastoid air cells are clear. IMPRESSION: 1. No acute intracranial abnormality. 2. Mild generalized cerebral volume loss. Electronically signed by: Jose Irwin MD 01/20/2020 11:34 AM CDT
== END ==
LOC: MRI 10:00
PROVIDERS: ATTEND Family Medicine
DX: G31.9 Degenerative disease of nervous system, unspecified (principal); R29.898 Other symptoms and signs involving the musculoskeletal system

== ENCOUNTER → 2020-01-31 | Outpatient (CLI) | payer MEDICARE, OTHER ==
--- NOTE | 2020-02-03 08:35 | MRI ---
EXAM DESCRIPTION: Lumbar Spine w/o Contrast CLINICAL HISTORY: INTERVERTEBRAL DISC DISORDERS W RADICULOPATHY COMPARISON: X-rays October 10, 2017 TECHNIQUE: Multiplanar, multisequence MRI of the lumbar spine was performed without contrast. FINDINGS: Severe curvature of the mid to upper lumbar spine with convexity towards the right centered at L2. Counterclockwise rotational curvature of the upper lumbar spine is seen. Lumbar vertebral body heights are maintained without acute compression fracture deformity. Mild Modic type I degenerative endplate signal changes are seen towards the right at L4-5. Conus medullaris terminates at T12-L1 and is unremarkable. Desiccation of the disc spaces throughout the lumbar spine. Visualized intra-abdominal and retroperitoneal structures show no acute findings. L1-2 Mild 2 mm broad-based disc bulging. Mild left facet hypertrophic and degenerative changes. No spinal canal stenosis. Mild left foraminal encroachment. L2-3 Moderate disc space narrowing asymmetric towards the left. Mild retrolisthesis of L2 on L3 towards the left with mild left greater than right facet hypertrophic and degenerative changes contributes to mild left lateral recess encroachment. Mild left foraminal encroachment. L3-4 Mild disc space narrowing. Mild bilateral facet hypertrophic and degenerative changes with small facet joint effusions. Mild spinal canal stenosis. Mild bilateral foraminal encroachment. L4-5 Mild to moderate disc space narrowing. Endplate irregularity towards the right. Moderate right greater than left facet hypertrophic and degenerative changes. Mild spinal canal stenosis and moderate right lateral recess encroachment. Moderate right and mild left foraminal encroachment. L5-S1 Mild disc space narrowing. Vacuum disc towards the right. Severe bilateral facet hypertrophic and degenerative changes with large bilateral facet joint effusions and right greater than left ligamentum flavum thickening. Mild spinal canal stenosis. At least mild right lateral recess encroachment is seen. Severe right and mild left foraminal encroachment with loss of normal fat signal from around the exiting right L5 nerve root. Sagittal images show fluid signal probable facet joint synovial cyst measuring 12 mm extending into the left lateral recess and spinal canal encroaching on the left S1 and probably S2 nerve roots. IMPRESSION: Severe dextrocurvature of the lumbar spine with counterclockwise rotational component is seen. Moderate disc disease and facet arthropathy of the lumbar spine is seen. Multifactorial severe right foraminal encroachment is seen at L5-S1. Probable facet joint synovial cyst from the left L5-S1 facet joint extending towards the spinal canal incompletely seen on axial T2 weighted sequences likely encroaching on the left S1 and S2 nerve roots. Correlate with left S1 or S2 radicular symptoms. Electronically signed by: Gabe Pedro MD 02/03/2020 8:34 AM CDT
== END ==
LOC: MRI 13:00
PROVIDERS: ATTEND Psychiatry & Neurology Neurology
DX: M51.16 Intervertebral disc disorders with radiculopathy, lumbar region (principal); M41.9 Scoliosis, unspecified; M51.36 Other intervertebral disc degeneration, lumbar region; M12.9 Arthropathy, unspecified; M48.07 Spinal stenosis, lumbosacral region; M51.87 Other intervertebral disc disorders, lumbosacral region

== ENCOUNTER → 2020-02-24 | Outpatient (CLI) | payer MEDICARE, OTHER | END | disposition home or self-care (01) | LOC: LAB.O 09:42 | PROVIDERS: ATTEND Orthopaedic Surgery | DX: Z01.818 Encounter for other preprocedural examination (principal) ==

== ENCOUNTER → 2020-06-30 | Outpatient (CLI) | payer MEDICARE, OTHER ==
--- NOTE | 2020-06-30 15:21 | CT ---
EXAM DESCRIPTION: Abdomen/Pelvis w/wo Contrast CLINICAL HISTORY: 64 years Female, ABDOMINAL SWELLING COMPARISON: 14 May 2010 TECHNIQUE: Transaxial images were obtained without and with intravenous contrast medium and without oral contrast media. Sagittal and coronal reconstruction was performed.This exam was performed according to our departmental dose-optimization program, which includes automated exposure control, adjustment of the mA and/or kV according to patient size and/or use of iterative reconstruction technique. FINDINGS: A small hiatus hernia is observed. The lung bases are clear. The liver and spleen are unremarkable. No biliary ductal dilatation is observed. The gallbladder is normal in appearance. No adrenal masses are detected. The pancreas is normal in appearance. Imaging of the kidneys reveals no evidence of hydronephrosis mass cyst or calcification. A large stool burden is observed. No free pelvic fluid is observed. The patient is post hysterectomy. No inguinal region abnormality is detected. Degenerative changes are observed in the lumbar spine. There is a right lumbar scoliosis present. IMPRESSION: 1. Small hiatus hernia. 2. Large stool burden. 3. Hysterectomy. Electronically signed by: Jarvis Pedraza MD 06/30/2020 3:18 PM [facility]
== END ==
LOC: CT 07:57
PROVIDERS: ATTEND Family Medicine
DX: R14.0 Abdominal distension (gaseous) (principal); K44.9 Diaphragmatic hernia without obstruction or gangrene; K59.00 Constipation, unspecified; Z90.710 Acquired absence of both cervix and uterus

== ENCOUNTER → 2020-07-27 | Outpatient (CLI) | payer MEDICARE, OTHER | LOC: GMAM 14:11 | PROVIDERS: ATTEND Family Medicine | DX: E53.8 Deficiency of other specified B group vitamins (principal); E55.9 Vitamin D deficiency, unspecified; I10 Essential (primary) hypertension; E78.2 Mixed hyperlipidemia ==